=== PATIENT | female | born 1970 | race Caucasian/White ===

== ENCOUNTER 2019-06-08 04:58 | Emergency (ER) | payer OTHER, SELFPAY ==
[2019-06-08 04:58] VITALS: BP 114/75; PULSE 78; RESP 16; TEMP 36.1; O2SAT 98; BMI 38.7
--- NOTE | 2019-06-08 05:05 | ED.VIS.GI ---
History of Present Illness Chief Complaint: Flank Pain Informant: Patient - Abdominal Pain/Flank Pain Onset: Hours - about 7 Context: Sudden Onset Timing: Continuous, Waxes and wanes Quality: Aching Location: Right Flank - w/ radiation around to RLQ and into right groin Current Severity: Moderate Maximum Severity: Severe Worsened by: Nothing Relieved by: Nothing - Nausea/Vomiting/Emesis GI Symptom: Nausea. Negative for: Vomiting - Diarrhea/Melena/Hematochezia GI Symptom: Negative for: Diarrhea, Melena, Hematochezia Associated Symptoms: - - hesitancy. Negative for: Dysuria, Hematuria LMP: postmenopausal Narrative: Sudden onset colicky severe right flank pain with urinary hesitancy and urgency. No dysuria or hematuria. Nausea but no vomiting. No fevers. Prior similar symptoms: No Recent Illness/Hospitalization: No - Past Medical History (1) Dyslipidemia Status: Chronic (2) Hypertension Status: Chronic (3) Hypothyroidism Status: Chronic (4) Obesity Status: Chronic (5) Type 2 diabetes mellitus Status: Chronic Past Medical History - Allergies and Home Meds Allergies/Adverse Reactions: Allergies No Known Allergies Allergy (Unverified 06/08/19 05:03) Primary Care Physician: Candy Lira [Primary Care Provider] - Surgical History: - - x 3; no other abd surgeries Lives: With Family Smoking Status: Never smoker Review of Systems General: Denies: Chills, Fever, Sweats Eyes: Denies: Visual changes - bilaterally, Diplopia ENT: Denies: Rhinorrhea, Sore throat Cardiovascular: Denies: Chest pain, Palpitations Respiratory: Denies: Dyspnea, Cough, Dyspnea on exertion Gastrointestinal: Reports: Abdominal pain, Nausea. Denies: Vomiting, Diarrhea, Melena, Hematochezia Genitourinary: Reports: - - hesitancy, urgency. Denies: Dysuria, Hematuria, Frequency Musculoskeletal: Reports: Back pain - R low back. Denies: Neck pain, Extremity Pain Skin: Denies: Rash, Wounds Neurological: Denies: Headache, Weakness, Numbness Physical Exam Vital Signs/Narrative: Vital Signs Temp Pulse Resp BP Pulse Ox 06/08/19 04:58 96.9 F L 78 16 114/75 98 Inital Vital Signs reviewed: Yes General: Well nourished, Well developed, Obese, No Acute Distress Head: Normocephalic, Atraumatic Eyes: Perrl, EOMI ENT: Moist mucous membranes, No rhinorrhea Neck: Supple, Nontender Cardiovascular: Regular rate, Regular rhythm, No murmurs Respiratory: No distress, CTA bilaterally, Chest nontender Abdomen: Soft, Nondistended, Normal bowel sounds, Tender - mild lateral RUQ only; no RLQ tend. Negative for: Guarding, Rebound tenderness Back: Nontender, Normal Inspection, CVA tenderness - mild R only Extremities: Nontender, No edema Skin: Normal color, No rash, No Trauma Neurological: Alert, Oriented x3, Cranial nerves II-XII grossly intact, Normal Strength, Normal Sensation, Normal Gait Psychological: Normal affect, Normal Mood Diagnostic/Tx/Re-eval Impressions Abdomen/Pelvis CT 06/08/19 06:56 IMPRESSION: Mild right hydronephrosis and hydroureter with a small right UVJ calculus. Bilateral ovarian cysts, complex on the left side. Large umbilical hernia. Hepatomegaly, hepatic steatosis, morbid obesity, degenerative changes, distal splenic artery aneurysm and indeterminate calcification within the spleen felt to be nonacute findings. Electronically Signed: Cynthia Bhat MD at 7:39 EDT , Service support , 06/08/19 06:56 CT Abd [Abdomen/Pelvis without Cont] [CT] Stat Laboratory Results 06/08/19 06/08/19 06/08/19 05:05 05:05 06:10 WBC 10.5 RBC 5.06 Hgb 14.2 Hct 44.5 MCV 87.9 MCH 28.1 MCHC 31.9 L RDW Std Deviation 49.6 H RDW Coeff of David 15.7 H Plt Count 234 MPV 10.7 Immature Gran % (Auto) 0.200 Neut % (Auto) 82.4 H Lymph % (Auto) 14.3 L [place] % (Auto) 1.5 Eos % (Auto) 1.0 Baso % (Auto) 0.6 Absolute Neuts (auto) 8.7 H Absolute Lymphs (auto) 1.50 Nucleated RBC % 0 Sodium 139 Potassium 3.4 L Chloride 103 Carbon Dioxide 26.0 Anion Gap 10 BUN 26 H Creatinine 1.28 H Estim Creat Clear Calc 43.50 Est GFR (MDRD) Af Amer 57 L Est GFR (MDRD) Non-Af 47 L BUN/Creatinine Ratio 20.3 H Glucose 153 H Calcium 9.9 Urine Color Yellow Urine Clarity Sl. Cloudy Urine pH 6.0 Ur Specific Hornick 1.010 Urine Protein 15 H Urine Glucose (UA) 1000 H Urine Ketones 5 H Urine Occult Blood Negative Urine Nitrite Negative Urine Bilirubin Negative Urine Urobilinogen Normal Ur Leukocyte Esterase 25 H Urine RBC 0 SEEN Urine WBC 5-10 SEEN Ur Squamous Epith Cells 0-5 SEEN Urine Bacteria 0 SEEN Urine Mucus 0 SEEN - Medical Decision Making Initially obtain urinalysis and provided pain and nausea control. She is feeling much more comfortable after morphine and Zofran. Urinalysis shows glycosuria, trace leukocyte esterase and 3-5 white blood cells but no blood. Therefore after discussion with patient, she was agreeable to further work-up although I still think the most likely diagnosis for her symptoms is a kidney stone. Certainly AAA, pyelonephritis, and other causes right-sided abdominal pain are in the differential, so CT was obtained. Patient did confirm that she had no urinary symptoms prior to the acute onset of pain last night. CT confirms a very small right UVJ calculus along with mild right hydronephrosis and hydroureter, which certainly explains her symptoms, there is no other acute abnormalities although an umbilical hernia was noted, hepatomegaly, hepatic steatosis, and a distal splenic artery aneurysm. Follow-up advised, she was given information for urology in case she needs it, but she expectant management is indicated at this time along with analgesics and Zofran which were prescribed. We discussed reasons to return, she is comfortable with all of this. ED Disposition - Plan for ED Patient: Disposition: Home or Assisted Living Diagnosis: Ureteral colic, Ureterolithiasis Instructions: KIDNEY STONE w/ Colic Prescriptions: Oxycodone HCl/Acetaminophen [Percocet 5/325] 1 tab PO Q6H PRN PRN 3 Days #12 tab PRN Reason: Pain Prescription Printed Ondansetron [Zofran] 8 mg PO Q8H PRN PRN #12 tab PRN Reason: Nausea Prescription Printed Referrals: [facility] Briseyda,Candy Alfredo [Primary Care Provider] - (Follow-up routinely for incidental findings seen on your CT scan: Umbilical hernia, fatty liver, splenic artery aneurysm. Most of the time, these findings need simply followed and are not acutely dangerous.) Ally Casey MD [STAFF PHYSICIAN] - 1 Week if not improving
[2019-06-08] MEDS: Morphine 4 MG/ML Syringe IV (05:18)
[2019-06-08] MEDS: Ondansetron 4 MG/2 ML Vial IV (05:19)
[2019-06-08 06:16] LABS: Bacteria 0 SEEN /hpf (None Seen); Mucous, Urine 0 SEEN /hpf (<or=2+); Red Blood Cells-Urine 0 SEEN /hpf (0-5)
[2019-06-08 06:17] LABS: Color, Urine Yellow (Yellow); Glucose, Dipstick 1000 mg/dl (Normal); Ketone-Dipstick 5 mg/dl (Negative); Leukocyte Esterase-Dipstick 25 /ul (Negative); Nitrite-Dipstick Negative (Negative); Occult Blood-Urine Negative /ul (Negative); Protein-Dipstick 15 mg/dl (Negative); Urine Bilirubin Dipstick Negative (Negative); Urine Clarity Sl. Cloudy (Clear); Urine Urobilinogen Normal (Normal)
[2019-06-08 06:35] LABS: Squamous Epithelial Cells - UA 0-5 SEEN /hpf (5-10); White Blood Cells 5-10 SEEN /hpf (0-5)
--- NOTE | 2019-06-08 06:56 | CT_ITS ---
STUDY: CT ABDOMEN AND PELVIS WITHOUT CONTRAST REASON FOR EXAM: Female, 48 years old. Right flank pain RADIATION DOSAGE (If Supplied By Facility): CTDIvol = ( 22.26 ) mGy, DLP = ( 1000.93 ) mGycm TECHNIQUE: Transaxial images were obtained from the dome of the diaphragm to the symphysis pubis without oral contrast, and without intravenous contrast. Sagittal and coronal images were reconstructed. Individualized dose optimization techniques were used for this CT. COMPARISON: None. FINDINGS: The visualized lung bases are unremarkable. The visualized portions of the heart are within normal limits. There is decreased attenuation of the enlarged liver consistent with steatosis. Normal gallbladder and extrahepatic biliary system. Normal spleen. Calcified distal splenic artery aneurysm . 2 round small intraparenchymal calcification within the spleen are indeterminate. Normal pancreas. Normal bilateral adrenal glands. Mild right hydronephrosis and hydroureter with perirenal and ureteral stranding and a small UVJ calculus of 0.3 cm. Normal left kidney. Normal visualized stomach. Normal small intestine. Normal colon. The appendix is visualized and appears normal. Normal abdominal aorta. Normal inferior vena cava. Normal retroperitoneum. Displacement to the right of the urinary bladder by the midline uterus. Left ovarian cyst with incomplete peripheral calcification measuring 2.5 x 3 x 2.8 cm. Right ovarian cyst 1.8 x 2.1 x 2.6 cm with an adjacent subcentimeter cysts.. There is a slightly tethered to the anterior abdominal wall. Fat-containing umbilical hernia with adjacent subcutaneous fat stranding, opening 2 cm in width, hernia sac measuring 5.1 x 6.3 x 6.3 cm ( AP x width x height ). Morbid obesity. Anterior abdominal wall subcutaneous and fat stranding possible injection related. There are diffuse degenerative changes of the visualized lumbar spine. CT/Abdomen/Pelvis without Cont IMPRESSION: Mild right hydronephrosis and hydroureter with a small right UVJ calculus. Bilateral ovarian cysts, complex on the left side. Large umbilical hernia. Hepatomegaly, hepatic steatosis, morbid obesity, degenerative changes, distal splenic artery aneurysm and indeterminate calcification within the spleen felt to be nonacute findings. Electronically Signed: Cynthia Bhat MD at 7:39 EDT , Service support ,
[2019-06-08 07:07] LABS: Absolute Neutrophil Count 8.7 X10^3/uL (2.0-7.7); Basophil# 0.06 X10^3/uL; Basophil% 0.6 % (0-1); Eosinophil# 0.11 X10^3/uL; Hematocrit 44.5 % (37-47); Hemoglobin 14.2 g/dL (12.0-15.0); Lymphocyte % 14.3 % (19-41); Mean Corp Hgb Conc 31.9 g/dL (32-36); Mean Corpuscular Hgb 28.1 pg (27.0-32.0); Mean Corpuscular Volume 87.9 fL (81-99); Mean Platelet Vol. 10.7 fl (6.2-12.0); Monocyte# 0.16 X10^3/uL; Monocyte% 1.5 % (0-10); NRBC Flagged by Analyzer 0 % (0-5); Neutrophil # 8.67 X10^3/uL (2.7-7.7); Neutrophil % 82.4 % (47-70); Platelet Count 234 K/mm3 (150-450); RBC Distribution Width CV 15.7 % (11.6-14.6); RBC Distribution Width SD 49.6 fl (35.1-43.9); Red Blood Count 5.06 M/mm3 (4.2-5.4); White Blood Count 10.5 K/mm3 (4.4-11.0)
[2019-06-08 07:13] LABS: Anion Gap 10 (5-15); BUN 26 mg/dL (7-18); BUN/Creat Ratio 20.3 RATIO (10-20); Calcium,Total 9.9 mg/dL (8.5-10.1); Chloride 103 mmol/L (98-107); Creatinine, Serum 1.28 mg/dL (0.55-1.02); EST Glomerular Filtration Rate 47 mL/min (>60); Est Glom Filt Rate - Afr Amer 57 mL/min (>60); Glucose 153 mg/dL (74-106); Potassium 3.4 mmol/L (3.5-5.1); Sodium Level 139 mmol/L (136-145)
[2019-06-08] MEDS: oxyCODONE 5 MG Tablet PO (08:02)
[2019-06-08 08:03] VITALS: BP 124/63; PULSE 59; RESP 16; O2SAT 98
== END 2019-06-08 08:03 | disposition home or self-care (01) ==
PROVIDERS: Emergency Provider Emergency Medicine; Referring Provider Nurse Practitioner Family
DX: N13.2 Hydronephrosis with renal and ureteral calculous obstruction (principal); E66.01 Morbid (severe) obesity due to excess calories; N83.201 Unspecified ovarian cyst, right side; N83.202 Unspecified ovarian cyst, left side; K42.9 Umbilical hernia without obstruction or gangrene; K76.0 Fatty (change of) liver, not elsewhere classified; I72.8 Aneurysm of other specified arteries; E03.9 Hypothyroidism, unspecified; E11.9 Type 2 diabetes mellitus without complications; I10 Essential (primary) hypertension; E78.5 Hyperlipidemia, unspecified; Z79.4 Long term (current) use of insulin; Z79.84 Long term (current) use of oral hypoglycemic drugs; Z79.899 Other long term (current) drug therapy
CPT/HCPCS: 74176; 80048; 81001; 85025; 87086; 87088; 96374; 96375; 99284; A4216; J2405

== ENCOUNTER 2019-06-10 15:20 | Emergency (ER) | payer OTHER, SELFPAY ==
[2019-06-10] VITALS (11 sets, daily range): BP systolic 92–135; BP diastolic 56–69; PULSE 89–118; RESP 18–30; TEMP 37.3–37.8; O2SAT 81–98; BMI 40.1
--- NOTE | 2019-06-10 15:30 | RAD_ITS ---
STUDY: X-RAY CHEST REASON FOR EXAM: Female, 48 years old. Hypoxia TECHNIQUE: Single frontal view of the chest. COMPARISON: None. FINDINGS: Mild elevation of the right hemidiaphragm. Right basilar alveolar disease and atelectasis. There is no demonstrated pleural abnormality. Normal size heart. Normal mediastinum and kamran. Normal visualized pulmonary arteries. Normal visualized aortic arch and descending thoracic aorta. Normal visualized thoracic spine. Normal visualized ribs, clavicles, and shoulders. There is no demonstrated abnormality of the visualized soft tissue structures of the upper abdomen. RAD/Chest 1 View (Portable) IMPRESSION: Mild elevation of the right hemidiaphragm. Right basilar alveolar disease and atelectasis. Electronically Signed: Greg Cárdenas MD at 16:16 EST Tel , Service support ,
--- NOTE | 2019-06-10 15:30 | EKG12_ITS ---
Test Reason : CONFUSION Blood Pressure : / mmHG Vent. Rate : 114 BPM Atrial Rate : 114 BPM P-R Int : 138 ms QRS Dur : 084 ms QT Int : 294 ms P-R-T Axes : 035 065 015 degrees QTc Int : 405 ms Sinus tachycardia Possible Inferior infarct , age undetermined Cannot rule out Anterior infarct , age undetermined Abnormal ECG Confirmed by NEO LEONARD, SKYE ([id number]), editorial clerk VALDEZ BROWN ([id number]) on 06/13/2019 10:57:25 AM Referred By: NAREN Confirmed By:SKYE LARSON MD
--- NOTE | 2019-06-10 15:34 | ED.DCSUM_ITS ---
History of Present Illness Informant: Patient, Family, Office Rental Clerk Onset: Today Context: Gradual Onset Timing: Continuous Quality: lightheaded Location: head Current Severity: Severe Maximum Severity: Severe Worsened by: nothing Relieved by: nothing Associated Symptoms: Fever and chills Narrative: 48-year-old female with a history of hypertension, hyperlipidemia and type 2 diabetes mellitus presents to the emergency department by [facility] with confusion. Patient seen here 2 days ago. She was diagnosed with a kidney stone. She is been running a fever since this morning and per her she has seemed out of it and not like herself. Patient did not have any difficulty with speech or ambulation. She has not had numbness tingling or weakness or visual changes. No falls. She is not having any abdominal or flank pain. She did urinate this morning. She has no headache or neck pain. Squad states the patient was 80% pulse ox on room air. Per patient and she was not having difficulty breathing there was no evidence per them of respiratory distress and patient breathing comfortably on my evaluation Prior similar symptoms: Yes Recent Illness/Hospitalization: Yes <Zion Harper - Last Filed: 06/10/19 18:19> <Dillan Chambers - Last Filed: 06/10/19 23:43> Chief Complaint: Confusion Past Medical History Prior records reviewed: Yes Past Medical History: - - Hypertension, hyperlipidemia, diabetes mellitus Surgical History: - - x 3; no other abd surgeries Lives: With Family Smoking Status: Never smoker <Zion Harper - Last Filed: 06/10/19 18:19> <Dillan Chambers - Last Filed: 06/10/19 23:43> - Allergies and Home Meds Allergies/Adverse Reactions: Allergies No Known Allergies Allergy (Verified 06/10/19 15:20) Primary Care Physician: Candy Lira [Primary Care Provider] - Review of Systems All systems negative except as indicated General: Reports: Chills, Fever, Malaise Cardiovascular: Denies: Chest pain, Palpitations, Heart racing, -, - Respiratory: Denies: Dyspnea, Cough, Sputum, Dyspnea on exertion, Orthopnea, Paroxysmal nocturnal dyspnea, -, - Genitourinary: Reports: Dysuria Musculoskeletal: Denies: Myalgias, Arthralgias, Neck pain, Back pain, Swelling, Extremity Pain, -, - Skin: Denies: Rash, Abscess, Abrasions, Wounds, -, - Neurological: Denies: Headache, Weakness, Parasthesia, Numbness, -, - <Zion Harper - Last Filed: 06/10/19 18:19> Physical Exam Vital Signs/Narrative: Vital Signs Temp Pulse Resp BP Pulse Ox 06/10/19 15:26 29 H 95 06/10/19 15:23 99.6 F H 118 H 26 H 135/63 H 81 Inital Vital Signs reviewed: Yes General: Well nourished, Well developed, Obese, No Acute Distress Head: Normocephalic, Atraumatic Eyes: Perrl, EOMI ENT: Moist mucous membranes Neck: Supple, Nontender Cardiovascular: Regular rhythm, Tachycardia Respiratory: No distress, CTA bilaterally, Chest nontender Abdomen: Soft, Nontender, Nondistended, Normal bowel sounds, No masses Back: Nontender, Normal Inspection. Negative for: CVA tenderness Extremities: Nontender, No edema Skin: Normal color, No rash Neurological: Alert, Cranial nerves II-XII grossly intact, Normal Strength, Normal Sensation, Confused, Disoriented. Negative for: Parasthesia, Weakness, Left side facial droop, Right side facial droop <Zion Harper - Last Filed: 06/10/19 18:19> Vital Signs/Narrative: Vital Signs Temp Pulse Resp BP Pulse Ox 06/10/19 20:37 99.4 F H 89 22 H 93/57 L 97 06/10/19 20:00 99.4 F H 89 22 H 93/57 L 97 <Dillan Chambers - Last Filed: 06/10/19 23:43> Diagnostic/Tx/Re-eval Chest X-Ray - ED: 1 View, Read by ED Physician, Read by Radiologist, Right Infiltrate - Rhythm Strip Rhythm Strip: Sinus Tach Rate: 111 Ectopy: None - EKG Initial EKG Interpretation: No Acute Injury Pattern, Sinus Tachycardia Prior: Unchanged - Medical Decision Making On arrival patient is tachycardic with a fever. We did an EKG that showed sinus tachycardia but no signs of ischemia. Patient's work-up shows CBC with elevated white blood cell count of 12.6. Her creatinine is up to 2.1 with a BUN of 46 elevated from her visit here 2 days ago. Blood glucose 386. Urinalysis shows no infection. Chest x-ray shows a right lower lobe pneumonia. Patient is not having any abdominal pain. We did not repeat image her abdomen with known stone and no sign of infection in the urine. She is still requiring oxygen with 3 L nasal cannula but is 98%. She is in no distress. Lactate 2.6. She is given the appropriate IV fluid bolus. Rocephin and Zithromax for patient will require admission for sepsis that is likely from a pneumonia but she also has a right- sided ureteral stone. I spoke with the hospitalist Dr Jefferson. At this time Tuesday evening there is no urology call available and because of this he requested the patient be transferred. Patient and her requested transfer to [facility]. I spoke with Dr. Berkowitz urologist as well as the hospitalist Dr. Hamilton. To accept patient in transfer. Patient hemodynamically stable at this time family is agreeable with plan and she will be transferred. - Critical Care Time Critical care time (excluding procedures): 30-74 minutes, Discussing w/Consulta nts, Arranging Admission or Transfer, Performing Direct Patient Care at Bedside <Zion Harper - Last Filed: 06/10/19 18:19> - Medical Decision Making Patient was seen with me. I did a [id number] examination with the patient. Patient presents with confusion that began today. Patient was seen recently and diagnosed with a kidney stone. Review of the CT shows that this was a 3 mm stone on the right. Patient denies any dysuria or hematuria. Family reports that the patient is confused today. Patient knows that she is at [facility] but does not know what year, month, or day it is. Oral mucosa is pink and moist. Neck is supple. Trachea is midline. There is no JVD. Heart was regular rate and rhythm. Lungs are clear and equal bilaterally. Abdomen is soft. Bowel sounds are normal. There is some mild right-sided tenderness. There is no rebound or guarding noted. Cranial nerves II through XII grossly intact. There are no focal motor or sensory deficits. CBC shows a leukocytosis of 12.6. Creatinine is increased to 2.1. BUN was elevated at 46. These were both increased from previous results. Urinalysis does not show any evidence of urinary tract infection. Chest x-ray shows a right lower lobe pneumonia. Lactate was elevated at 2.6. Patient was given IV fluids. Patient was started on Rocephin and Zithromax. Case was discussed with the hospitalist here. Since the patient has a 3 mm ureteral calculus and there is no urology coverage today and he is unsure if there is urology coverage tomorrow, he felt that the patient will be best served being transferred to a different facility. Family requested to be transferred to [facility]. Case was discussed with the hospitalist and urologist there. Patient will be transferred to [facility]. Patient and family understood and were agreeable with the plan. All questions were answered. <Dillan Chambers - Last Filed: 06/10/19 23:43> ED Disposition <Zion Harper - Last Filed: 06/10/19 18:19> <Dillan Chambers - Last Filed: 06/10/19 23:43> - Plan for ED Patient: Disposition: [facility] Diagnosis: Sepsis, Ureteral stone, MILKA (acute kidney injury), CAP (community acquired pneumonia), Hypoxia Referrals: Candy Lira [Primary Care Provider] -
[2019-06-10 15:46] LABS: Mucous, Urine 0 SEEN /hpf (<or=2+); Squamous Epithelial Cells - UA 0 SEEN /hpf (5-10); White Blood Cells 0 SEEN /hpf (0-5)
[2019-06-10 15:49] LABS: Hematocrit 42.5 % (37-47); Hemoglobin 13.3 g/dL (12.0-15.0); Mean Corp Hgb Conc 31.3 g/dL (32-36); Mean Corpuscular Hgb 27.9 pg (27.0-32.0); Mean Corpuscular Volume 89.1 fL (81-99); Mean Platelet Vol. 11.5 fl (6.2-12.0); POSITIVE COUNT YES; POSITIVE DIFFERENTIAL YES; POSITIVE MORPHOLOGY YES; Platelet Count 73 K/mm3 (150-450); RBC Distribution Width CV 15.8 % (11.6-14.6); RBC Distribution Width SD 51.6 fl (35.1-43.9); Red Blood Count 4.77 M/mm3 (4.2-5.4); White Blood Count 12.6 K/mm3 (4.4-11.0)
[2019-06-10 15:50] LABS: Color, Urine Yellow (Yellow); Glucose, Dipstick 1000 mg/dl (Normal); Ketone-Dipstick 50 mg/dl (Negative); Leukocyte Esterase-Dipstick Negative /ul (Negative); Nitrite-Dipstick Negative (Negative); Occult Blood-Urine 150 /ul (Negative); Protein-Dipstick 30 mg/dl (Negative); Urine Bilirubin Dipstick Negative (Negative); Urine Clarity Sl. Cloudy (Clear); Urine Urobilinogen Normal (Normal)
[2019-06-10 15:53] LABS: International Normalized Ratio 1.2; Prothrombin Time (Protime)PT. 15.4 SECONDS (11.7-14.9)
[2019-06-10 15:54] LABS: Partial Thromboplast Time 33.4 Seconds (24.1-36.2)
[2019-06-10 15:56] LABS: Bacteria 1+ /hpf (None Seen); Red Blood Cells-Urine 0-5 SEEN /hpf (0-5)
[2019-06-10] MEDS: Acetaminophen 500 MG Tablet 1000 MG PO (15:57)
[2019-06-10] MEDS: 0.9% Normal Saline 1,000 ML 999 ML IV ×2 (16:03→16:36)
[2019-06-10 16:05] LABS: ALB/GLOB Ratio 0.5 RATIO (0.9-2.4); AST(SGOT) 44 U/L (15-37); Alanine Aminotransfer ALT/SGPT 39 U/L (13-56); Albumin, Serum 2.4 g/dL (3.2-5.0); Alkaline Phosphatase 140 U/L (45-117); Anion Gap 13 (5-15); BUN 41 mg/dL (7-18); Calcium,Total 9.7 mg/dL (8.5-10.1); Chloride 95 mmol/L (98-107); Creatinine, Serum 2.16 mg/dL (0.55-1.02); EST Glomerular Filtration Rate 26 mL/min (>60); Est Glom Filt Rate - Afr Amer 31 mL/min (>60); Estimated Creatinine Clearance 25.78 ml/min; Globulin 4.8 g/dL (2.2-4.2); Glucose 358 mg/dL (74-106); Potassium 3.8 mmol/L (3.5-5.1); Protein, Total 7.2 g/dL (6.4-8.2); Sodium Level 131 mmol/L (136-145)
[2019-06-10 16:20] LABS: Lactic Acid 2.6 mmol/L (0.4-2.0)
[2019-06-10 16:46] LABS: Differential Indicated MANUAL DIFF
[2019-06-10 16:59] LABS: Absolute Lymphocyte Count 1.13 X10^3/uL (0.83-4.51); Absolute Neutrophil Count 11.1 X10^3/uL (2.0-7.7); Lymphocyte # 1.13 X10^3/ul (4.0); Neutrophil # 11.09 X10^3/uL (2.7-7.7)
[2019-06-10 17:00] LABS: Total Cells Counted 100 (MANUAL DIFF)
[2019-06-10 17:09] LABS: Burr Cells RARE; Differential Comment SCANNED; Dohle Bodies RARE; Platelet Estimate MOD DEC (ADEQ)
[2019-06-10] MEDS: Ceftriaxone 1 GM/50 ML BAG IV (17:43)
[2019-06-10] MEDS: Ondansetron 4 MG/2 ML Vial IV (18:58)
[2019-06-10] MEDS: Morphine 4 MG/ML Syringe IV (18:59)
--- NOTE | 2019-06-10 19:10 | ED.RN ---
[facility] CALLED, THEY WILL BE DELAYED BY ONE HOUR FROM [facility] ETA. RN ADVISED
[2019-06-10 19:39] LABS: Reflex Lactate? Y
[2019-06-10] MEDS: 0.9% Normal Saline 1,000 ML 1000 ML IV (20:18)
[2019-06-10] MEDS: fentaNYL 100 MCG/2 ML Ampul 50 MCG IV (20:19)
[2019-06-10 21:01] LABS: Lactic Acid 1.6 mmol/L (0.4-2.0)
--- NOTE | 2019-06-11 02:51 | ED.RN ---
DORIS [facility] AT [facility] MADE AWARE BLOOD CULTURES CAME BACK GRAM NEGATIVE RODS AND PT DID RECEIVE ZITHROMAX AND ROCEPHIN THAT IS A TREATMENT FOR GRAM NEG INFECTIONS
[2019-06-11 15:23] LABS: Metamyelocyte 2 % (0-1); Neutrophil-Band 10 % (0-5); Neutrophil-Segmented 78 % (47-70)
[2019-06-11 15:24] LABS: Eosinophil 0 % (0-5); Lymphocyte 9 % (19-41); Monocyte 1 % (0-10)
[2019-06-13 13:24] LABS: Pathologist Review Reviewed
== END 2019-06-10 20:35 | disposition short-term general hospital (02) ==
PROVIDERS: Emergency Provider Physician Assistant Medical
DX: A41.9 Sepsis, unspecified organism (principal); N20.1 Calculus of ureter; N17.9 Acute kidney failure, unspecified; J18.9 Pneumonia, unspecified organism; R09.02 Hypoxemia; E66.9 Obesity, unspecified; E11.9 Type 2 diabetes mellitus without complications; E78.5 Hyperlipidemia, unspecified; I10 Essential (primary) hypertension; Z79.4 Long term (current) use of insulin; Z79.84 Long term (current) use of oral hypoglycemic drugs; Z79.899 Other long term (current) drug therapy
CPT/HCPCS: 36415; 51702; 71045; 80053; 81001; 83605; 85025; 85610; 85730; 87040; 87077; 87086; 87088; 87186; 93005; 96361; 96365; 96367; 96375; 99285; J7030; J7040; A4216; J2405

== ENCOUNTER → 2019-06-21 12:35 | Outpatient (CLI) | payer OTHER, SELFPAY ==
[2019-06-10 15:23] VITALS: BMI 40.1
[2019-06-21 13:14] LABS: ALB/GLOB Ratio 0.4 RATIO (0.9-2.4); AST(SGOT) 12 U/L (15-37); Alanine Aminotransfer ALT/SGPT 20 U/L (13-56); Albumin, Serum 2.1 g/dL (3.2-5.0); Alkaline Phosphatase 72 U/L (45-117); Anion Gap 7 (5-15); BUN 25 mg/dL (7-18); BUN/Creat Ratio 19.4 RATIO (10-20); Chloride 96 mmol/L (98-107); Creatinine, Serum 1.29 mg/dL (0.55-1.02); EST Glomerular Filtration Rate 46 mL/min (>60); Est Glom Filt Rate - Afr Amer 56 mL/min (>60); Glucose 188 mg/dL (74-106); Potassium 4.4 mmol/L (3.5-5.1); Protein, Total 7.1 g/dL (6.4-8.2); Sodium Level 136 mmol/L (136-145)
[2019-06-21 13:16] LABS: Erythrocyte Sedimentation Rate 107 mm/hr (0-30)
[2019-06-21 13:18] LABS: Hematocrit 35.7 % (37-47); Hemoglobin 10.8 g/dL (12.0-15.0); Mean Corp Hgb Conc 30.3 g/dL (32-36); Mean Corpuscular Hgb 27.3 pg (27.0-32.0); Mean Corpuscular Volume 90.2 fL (81-99); Mean Platelet Vol. 9.9 fl (6.2-12.0); Platelet Count 419 K/mm3 (150-450); RBC Distribution Width CV 15.3 % (11.6-14.6); RBC Distribution Width SD 50.3 fl (35.1-43.9); Red Blood Count 3.96 M/mm3 (4.2-5.4); White Blood Count 9.7 K/mm3 (4.4-11.0)
== END ==
DX: Z79.899 Other long term (current) drug therapy (principal)
CPT/HCPCS: 80053; 85027; 85652; 86140

== ENCOUNTER 2019-06-28 13:09 | Emergency (ER) | payer OTHER, SELFPAY ==
[2019-06-10 15:23] VITALS: BMI 40.1
[2019-06-28 13:10] VITALS: BP 99/54; PULSE 83; RESP 16; TEMP 36.4; O2SAT 96; BMI 41.0
--- NOTE | 2019-06-28 14:18 | ED.DCSUM_ITS ---
- ER Visit Summary Date of Service: 06/28/19 Chief Complaint: Bleeding from left arm PICC line site History of Present Illness: The patient is a 48 F 3 of diabetes, A. fib on Eliquis, kidney stones and low thyroid disease. Patient was recently hospitalized for an infection and currently has a PICC line that has been for 10 days and is being treated with IV antibiotics secondary to sepsis. States she has been doing well. She is on Eliquis secondary to A. fib and has bruising today at the PICC line site. Denies any pain. Home health nurse 100 evaluated. She denies any complaints. Physical Examination: Well-appearing middle-aged female no acute distress. Vital signs are stable. She does not look septic or toxic. HEENT exam unremarkable moist with membranes. Neck nontender. Lungs clear to auscultation bilaterally. Heart regular rhythm no murmur. Currently she is in normal sinus rhythm and is not in A. fib. Abdomen obese but soft and nontender. She is moving all 4 extremities. The left arm antecubital area is a PICC line site. There is a small amount of blood there it does not appear to be actively bleeding. There is no hematoma. And is no large amount of blood. Distally the left forearm is nontender nonswollen. The left hand is neurovascularly intact. And her radial pulses intact. Test Results: None Emergency Department Course and Treatment: ER nurse will change the PICC line dressing and will assess any acute bleeding. Treatment Plan: PICC line home care. Continue current meds. Disposition: Discharge Impression: Minor bleeding from left arm PICC line site This note was generated with [employer] dictation software. It may contain incorrect words, spelling, and punctuation that were not noted in review of the chart prior to signing ED Disposition - Plan for ED Patient: Referrals: Candy Lira [Primary Care Provider] -
--- NOTE | 2019-06-28 15:07 | ED.DEP ---
ED Disposition - Plan for ED Patient: Disposition: Home or Assisted Living Referrals: Raquel Rain,Candy Alfredo [Primary Care Provider] - As Needed Additional Instructions: Line site looks good. If it rebleeds hold direct pressure and ice to the area. If unable to get it stopped and bleeding significantly return.
[2019-06-28 15:09] VITALS: BP 110/70; PULSE 80; RESP 14; O2SAT 98
== END 2019-06-28 15:16 | disposition home or self-care (01) ==
PROVIDERS: Emergency Provider Emergency Medicine
DX: T85.838A Hemorrhage due to other internal prosthetic devices, implants and grafts, initial encounter (principal); E11.9 Type 2 diabetes mellitus without complications; I48.91 Unspecified atrial fibrillation; E03.9 Hypothyroidism, unspecified; Z86.19 Personal history of other infectious and parasitic diseases; Z87.442 Personal history of urinary calculi; Z79.01 Long term (current) use of anticoagulants; Z79.4 Long term (current) use of insulin; Z79.84 Long term (current) use of oral hypoglycemic drugs; Z79.899 Other long term (current) drug therapy
CPT/HCPCS: 99282

== ENCOUNTER → 2019-07-02 13:04 | Outpatient (CLI) | payer OTHER, SELFPAY ==
[2019-06-28 13:10] VITALS: BMI 41.0
[2019-07-02 13:24] LABS: Erythrocyte Sedimentation Rate 97 mm/hr (0-30)
[2019-07-02 13:25] LABS: Hematocrit 32.9 % (37-47); Hemoglobin 10.2 g/dL (12.0-15.0); Mean Corpuscular Hgb 27.4 pg (27.0-32.0); Mean Corpuscular Volume 88.4 fL (81-99); Mean Platelet Vol. 9.9 fl (6.2-12.0); Platelet Count 216 K/mm3 (150-450); RBC Distribution Width CV 15.5 % (11.6-14.6); RBC Distribution Width SD 49.2 fl (35.1-43.9); Red Blood Count 3.72 M/mm3 (4.2-5.4); White Blood Count 6.2 K/mm3 (4.4-11.0)
[2019-07-02 13:34] LABS: ALB/GLOB Ratio 0.7 RATIO (0.9-2.4); AST(SGOT) 23 U/L (15-37); Alanine Aminotransfer ALT/SGPT 27 U/L (13-56); Albumin, Serum 2.7 g/dL (3.2-5.0); Alkaline Phosphatase 67 U/L (45-117); Anion Gap 7 (5-15); BUN 21 mg/dL (7-18); BUN/Creat Ratio 14.9 RATIO (10-20); Calcium,Total 8.5 mg/dL (8.5-10.1); Chloride 99 mmol/L (98-107); Creatinine, Serum 1.41 mg/dL (0.55-1.02); EST Glomerular Filtration Rate 42 mL/min (>60); Est Glom Filt Rate - Afr Amer 51 mL/min (>60); Glucose 162 mg/dL (74-106); Potassium 4.3 mmol/L (3.5-5.1); Protein, Total 6.7 g/dL (6.4-8.2); Sodium Level 137 mmol/L (136-145)
== END ==
DX: N20.0 Calculus of kidney (principal)
CPT/HCPCS: 80053; 85027; 85652; 86140

== ENCOUNTER → 2019-07-09 12:22 | Outpatient (CLI) | payer OTHER, SELFPAY ==
[2019-06-28 13:10] VITALS: BMI 41.0
[2019-07-09 13:09] LABS: Hematocrit 31.1 % (37-47); Hemoglobin 9.6 g/dL (12.0-15.0); Mean Corp Hgb Conc 30.9 g/dL (32-36); Mean Corpuscular Hgb 27.5 pg (27.0-32.0); Mean Corpuscular Volume 89.1 fL (81-99); Mean Platelet Vol. 9.9 fl (6.2-12.0); Platelet Count 250 K/mm3 (150-450); RBC Distribution Width CV 15.6 % (11.6-14.6); RBC Distribution Width SD 49.9 fl (35.1-43.9); Red Blood Count 3.49 M/mm3 (4.2-5.4); White Blood Count 5.8 K/mm3 (4.4-11.0)
[2019-07-09 13:13] LABS: Erythrocyte Sedimentation Rate 67 mm/hr (0-30)
[2019-07-09 13:27] LABS: ALB/GLOB Ratio 0.7 RATIO (0.9-2.4); AST(SGOT) 25 U/L (15-37); Alanine Aminotransfer ALT/SGPT 28 U/L (13-56); Albumin, Serum 2.6 g/dL (3.2-5.0); Alkaline Phosphatase 67 U/L (45-117); Anion Gap 8 (5-15); BUN 27 mg/dL (7-18); BUN/Creat Ratio 19.7 RATIO (10-20); Calcium,Total 8.9 mg/dL (8.5-10.1); Chloride 100 mmol/L (98-107); Creatinine, Serum 1.37 mg/dL (0.55-1.02); EST Glomerular Filtration Rate 43 mL/min (>60); Est Glom Filt Rate - Afr Amer 52 mL/min (>60); Globulin 3.9 g/dL (2.2-4.2); Glucose 181 mg/dL (74-106); Potassium 4.6 mmol/L (3.5-5.1); Protein, Total 6.5 g/dL (6.4-8.2); Sodium Level 137 mmol/L (136-145)
== END ==
DX: N20.0 Calculus of kidney (principal)
CPT/HCPCS: 80053; 85027; 85652; 86140

== ENCOUNTER → 2020-02-26 09:16 | Outpatient (CLI) | payer SELFPAY ==
[2020-02-06 08:45] VITALS: BMI 44.7
[2020-02-26 09:57] LABS: Absolute Lymphocyte Count 3.68 X10^3/uL (0.83-4.51); Absolute Neutrophil Count 4.8 X10^3/uL (2.0-7.7); Basophil# 0.06 X10^3/uL; Basophil% 0.6 % (0-1); Eosinophil# 1.56 X10^3/uL; Eosinophils% 14.7 % (0-5); Hemoglobin 11.7 g/dL (12.0-15.0); Lymphocyte # 3.68 X10^3/ul (4.0); Lymphocyte % 34.8 % (19-41); Mean Corp Hgb Conc 30.8 g/dL (32-36); Mean Corpuscular Volume 87.8 fL (81-99); Mean Platelet Vol. 10.1 fl (6.2-12.0); Monocyte# 0.43 X10^3/uL; Monocyte% 4.1 % (0-10); NRBC Flagged by Analyzer 0 % (0-5); Neutrophil # 4.79 X10^3/uL (2.7-7.7); Neutrophil % 45.2 % (47-70); Platelet Count 242 K/mm3 (150-450); RBC Distribution Width CV 18.2 % (11.6-14.6); Red Blood Count 4.33 M/mm3 (4.2-5.4); White Blood Count 10.6 K/mm3 (4.4-11.0)
[2020-02-26 10:47] LABS: ALB/GLOB Ratio 0.9 RATIO (0.9-2.4); AST(SGOT) 19 U/L (15-37); Alanine Aminotransfer ALT/SGPT 32 U/L (13-56); Albumin, Serum 3.2 g/dL (3.2-5.0); Alkaline Phosphatase 45 U/L (45-117); Anion Gap 3 (5-15); BUN 22 mg/dL (7-18); Calcium,Total 8.6 mg/dL (8.5-10.1); Chloride 106 mmol/L (98-107); Creatinine, Serum 1.16 mg/dL (0.55-1.02); EST Glomerular Filtration Rate 52 mL/min (>60); Est Glom Filt Rate - Afr Amer 63 mL/min (>60); Globulin 3.6 g/dL (2.2-4.2); Glucose 201 mg/dL (74-106); Protein, Total 6.8 g/dL (6.4-8.2); Sodium Level 138 mmol/L (136-145); Thyroid Stim Hormone (TSH) 0.29 uIU/mL (0.358-3.74)
[2020-02-26 10:50] LABS: Hemoglobin A1c 9.3 % (3.8-5.6)
== END ==
PROVIDERS: Referring Provider Nurse Practitioner Family; Visit Provider Nurse Practitioner Family
DX: E11.22 Type 2 diabetes mellitus with diabetic chronic kidney disease (principal); N18.3 Chronic kidney disease, stage 3 (moderate); E03.9 Hypothyroidism, unspecified; E11.65 Type 2 diabetes mellitus with hyperglycemia; I50.9 Heart failure, unspecified
CPT/HCPCS: 36415; 80053; 83036; 84443; 85025

== ENCOUNTER → 2020-04-22 08:45 | Outpatient (CLI) | payer OTHER, SELFPAY ==
[2020-02-06 08:45] VITALS: BMI 44.7
[2020-04-22 10:37] LABS: Free T3 2.4 pg/mL (2.18-3.98); T4 Free Direct 1.06 ng/dL (0.76-1.46); Thyroid Stim Hormone (TSH) 6.42 uIU/mL (0.358-3.74)
== END ==
DX: E03.9 Hypothyroidism, unspecified (principal)
CPT/HCPCS: 36415; 84439; 84443; 84481

== ENCOUNTER → 2020-06-13 09:02 | Outpatient (CLI) | payer OTHER, SELFPAY ==
[2020-02-06 08:45] VITALS: BMI 44.7
[2020-06-13 09:32] LABS: Absolute Lymphocyte Count 3.06 X10^3/uL (0.83-4.51); Absolute Neutrophil Count 5.5 X10^3/uL (2.0-7.7); Basophil# 0.04 X10^3/uL; Basophil% 0.4 % (0-1); Eosinophil# 0.28 X10^3/uL; Hematocrit 39.4 % (37-47); Hemoglobin 11.8 g/dL (12.0-15.0); Lymphocyte # 3.06 X10^3/ul (4.0); Lymphocyte % 32.8 % (19-41); Mean Corp Hgb Conc 29.9 g/dL (32-36); Mean Corpuscular Hgb 26.7 pg (27.0-32.0); Mean Corpuscular Volume 89.1 fL (81-99); Mean Platelet Vol. 10.1 fl (6.2-12.0); Monocyte# 0.47 X10^3/uL; NRBC Flagged by Analyzer 0 % (0-5); Neutrophil # 5.46 X10^3/uL (2.7-7.7); Neutrophil % 58.6 % (47-70); Platelet Count 263 K/mm3 (150-450); RBC Distribution Width CV 15.9 % (11.6-14.6); RBC Distribution Width SD 51.8 fl (35.1-43.9); Red Blood Count 4.42 M/mm3 (4.2-5.4); White Blood Count 9.3 K/mm3 (4.4-11.0)
[2020-06-13 10:12] LABS: ALB/GLOB Ratio 0.8 RATIO (0.9-2.4); AST(SGOT) 17 U/L (15-37); Alanine Aminotransfer ALT/SGPT 33 U/L (13-56); Albumin, Serum 3.3 g/dL (3.2-5.0); Alkaline Phosphatase 50 U/L (45-117); Anion Gap 5 (5-15); BUN 24 mg/dL (7-18); BUN/Creat Ratio 16.6 RATIO (10-20); Calcium,Total 9.1 mg/dL (8.5-10.1); Chloride 102 mmol/L (98-107); Cholesterol 164 mg/dL (200); Creatinine, Serum 1.45 mg/dL (0.55-1.02); EST Glomerular Filtration Rate 40 mL/min (>60); Est Glom Filt Rate - Afr Amer 49 mL/min (>60); Globulin 4.2 g/dL (2.2-4.2); Glucose 159 mg/dL (74-106); Hemoglobin A1c 8.7 % (3.8-5.6); High Density Lipoprotein 57 mg/dL; Potassium 4.2 mmol/L (3.5-5.1); Protein, Total 7.5 g/dL (6.4-8.2); Sodium Level 139 mmol/L (136-145); T4 Free Direct 1.17 ng/dL (0.76-1.46); Thyroid Stim Hormone (TSH) 1.42 uIU/mL (0.358-3.74); Triglycerides 148 mg/dL; Very Low Density Lipoprotein 30 mg/dL (5-40)
== END ==
DX: E11.65 Type 2 diabetes mellitus with hyperglycemia (principal); E03.9 Hypothyroidism, unspecified
CPT/HCPCS: 36415; 80053; 80061; 83036; 84439; 84443; 85025

== ENCOUNTER → 2020-10-22 09:37 | Outpatient (CLI) | payer OTHER, SELFPAY ==
[2020-10-22 11:42] LABS: Hemoglobin A1c 9.1 % (3.8-5.6)
[2020-10-22 11:50] LABS: ALB/GLOB Ratio 0.7 RATIO (0.9-2.4); AST(SGOT) 28 U/L (15-37); Alanine Aminotransfer ALT/SGPT 45 U/L (13-56); Albumin, Serum 3.3 g/dL (3.2-5.0); Alkaline Phosphatase 54 U/L (45-117); Anion Gap 5 (5-15); BUN 23 mg/dL (7-18); Calcium,Total 9.4 mg/dL (8.5-10.1); Chloride 103 mmol/L (98-107); Cholesterol 205 mg/dL (200); Creatinine, Serum 1.35 mg/dL (0.55-1.02); EST Glomerular Filtration Rate 44 mL/min (>60); Est Glom Filt Rate - Afr Amer 53 mL/min (>60); Globulin 4.8 g/dL (2.2-4.2); Glucose 188 mg/dL (74-106); High Density Lipoprotein 49 mg/dL; Potassium 4.1 mmol/L (3.5-5.1); Protein, Total 8.1 g/dL (6.4-8.2); Sodium Level 134 mmol/L (136-145); T4 Free Direct 1.42 ng/dL (0.76-1.46); Thyroid Stim Hormone (TSH) 4.12 uIU/mL (0.358-3.74); Triglycerides 228 mg/dL; Very Low Density Lipoprotein 46 mg/dL (5-40)
== END ==
PROVIDERS: Referring Provider Internal Medicine Endocrinology, Diabetes & Metabolism; Visit Provider Internal Medicine Endocrinology, Diabetes & Metabolism
DX: E11.22 Type 2 diabetes mellitus with diabetic chronic kidney disease (principal); I12.9 Hypertensive chronic kidney disease with stage 1 through stage 4 chronic kidney disease, or unspecified chronic kidney disease; N18.30 Chronic kidney disease, stage 3 unspecified; E03.9 Hypothyroidism, unspecified; E78.5 Hyperlipidemia, unspecified
CPT/HCPCS: 36415; 80053; 80061; 83036; 84439; 84443

== ENCOUNTER → 2024-01-23 | Outpatient (CLI) | payer SELFPAY, OTHER ==
--- NOTE | 2024-01-23 09:55 | ECHOD_ITS ---
Reason For Study: CHF Procedure This was a 2D Doppler, Color Flow transthoracic echocardiogram. The study was technically difficult. Definity deferred due to nephrectomy. Exam performed in department. Left Ventricle Normal LV size. Left ventricular systolic function is normal. The left ventricular ejection fraction is 55 %. No regional wall motion abnormalities noted. Right Ventricle Normal RV size. Normal systolic function. Atria Normal left atrium. Normal right atrium. Mitral Valve Normal mitral valve. Tricuspid Valve Normal tricuspid valve. Great Vessels Normal aortic root. Pericardium/Pleural No pericardial effusion. MMode/2D Measurements & Calculations Ao root diam: 2.8 cm LAV(MOD-bp): 35.8 ml LA A4 area: 14.1 cm2 LAV(MOD-bp) Indexed: 18.1 ml/m2 LAV(MOD-sp2): 32.5 ml LAV(MOD-sp4): 32.2 ml LA dimension(2D): 2.8 cm RA A4 area: 9.0 cm2 TAPSE: 1.9 cm Time Measurements MV dec time: 0.17 sec Doppler Measurements & Calculations MV E max ravi: 68.9 cm/sec Lat Peak E' Ravi: 7.3 cm/sec Med Peak E' Ravi: 7.0 cm/sec MV A max ravi: 76.4 cm/sec E/E' lat: 9.4 E/E' med: 9.8 MV E/A: 0.90 MV V2 max: 82.2 cm/sec MV dec slope: 403.2 cm/sec2 Ao V2 max: 119.3 cm/sec MV max P.7 mmHg Ao max P.7 mmHg MV V2 mean: 48.4 cm/sec Ao V2 mean: 82.9 cm/sec MV mean P.1 mmHg Ao mean P.1 mmHg MV V2 VTI: 23.1 cm Ao V2 VTI: 25.7 cm AV (velocity ratio): 0.94 LV V1 max: 115.0 cm/sec PA V2 max: 98.7 cm/sec LV V1 max P.3 mmHg PA V2 mean: 67.8 cm/sec LV V1 mean P.6 mmHg LV V1 mean: 75.6 cm/sec LV V1 VTI: 24.2 cm ECHO/Echo Complete Interpretation Summary Normal LV size. Left ventricular systolic function is normal. The left ventricular ejection fraction is 55 %. The study was technically difficult. The study was technically limited. Ordering Physician: Valdez Jerome Referring Physician: VALDEZ JEROME Performed By: Maria De Jesus Neri RCS
== END | disposition home or self-care (01) ==
PROVIDERS: PCP Nurse Practitioner Family; Visit Provider Nurse Practitioner Family
DX: I50.30 Unspecified diastolic (congestive) heart failure (principal); R07.9 Chest pain, unspecified; R06.02 Shortness of breath
CPT/HCPCS: 93306

== ENCOUNTER → 2024-02-01 | Outpatient (CLI) | payer OTHER, SELFPAY ==
[2024-02-01 16:59] LABS: BNP,B-Type NATRIURETIC PEPTIDE 34.7 pg/mL (0-100)
[2024-02-01 17:11] LABS: Anion Gap 4 (5-15); BUN 26 mg/dL (7-18); BUN/Creat Ratio 15.9 RATIO (10-20); Calcium,Total 9.8 mg/dL (8.5-10.1); Chloride 100 mmol/L (98-107); Creatinine, Serum 1.64 mg/dL (0.55-1.02); EST Glomerular Filtration Rate 35 mL/min (>60); Est Glom Filt Rate - Afr Amer 42 mL/min (>60); Glucose 332 mg/dL (74-106); Potassium 4.7 mmol/L (3.5-5.1); Sodium Level 135 mmol/L (136-145); Thyroid Stim Hormone (TSH) 0.63 uIU/mL (0.358-3.74)
== END | disposition home or self-care (01) ==
LOC: LAB 15:30
PROVIDERS: PCP Nurse Practitioner Family; Referring Provider Internal Medicine Cardiovascular Disease; Visit Provider Internal Medicine Cardiovascular Disease
DX: I11.0 Hypertensive heart disease with heart failure (principal); I50.32 Chronic diastolic (congestive) heart failure
CPT/HCPCS: 36415; 80048; 83880; 84443

== ENCOUNTER → 2024-12-19 | Outpatient (CLI) | payer OTHER, SELFPAY ==
[2024-12-19 10:59] LABS: Bacteria 0 SEEN /hpf (None Seen); Mucous, Urine 0 SEEN /hpf (<or=2+); White Blood Cells 0 SEEN /hpf (0-5)
[2024-12-19 12:21] LABS: Color, Urine Yellow (Yellow); Glucose, Dipstick 1000 mg/dl (Normal); Ketone-Dipstick Negative (Negative); Leukocyte Esterase-Dipstick Negative /ul (Negative); Nitrite-Dipstick Negative (Negative); Occult Blood-Urine 25 /ul (Negative); Protein-Dipstick 15 mg/dl (Negative); Urine Bilirubin Dipstick Negative (Negative); Urine Clarity Sl. Cloudy (Clear); Urine Urobilinogen Normal (Normal)
[2024-12-19 12:27] LABS: Squamous Epithelial Cells - UA 0-5 SEEN /hpf (5-10)
[2024-12-19 12:28] LABS: Red Blood Cells-Urine 0-5 SEEN /hpf (0-5)
== END | disposition home or self-care (01) ==
LOC: MTLAB 10:56
PROVIDERS: PCP Nurse Practitioner Family; Referring Provider Nurse Practitioner Family; Visit Provider Nurse Practitioner Family
DX: R30.0 Dysuria (principal)
CPT/HCPCS: 81001; 87086; 87088

== ENCOUNTER → 2025-01-01 | Outpatient (CLI) | payer OTHER, SELFPAY ==
--- NOTE | 2025-01-01 18:42 | US_ITS ---
PROCEDURE: KIDNEY AND BLADDER 01/01/2025 REASON FOR EXAM: CKD TECHNIQUE: Ultrasound imaging of Kidney and bladder. COMPARISON: None available FINDINGS: Report of right nephrectomy. Right renal fossa appears unremarkable. Bladder volume 94 cc. Bladder appears within limits as imaged. Wall thickness 3 mm. Left ureteral jet not seen during imaging. The left kidney measures 11.1 x 5 x 6 cm with a cortical thickness of 2.1 cm and appears within limits for echogenicity without hydronephrosis or perinephric edema seen. 4 x 7 x 3 mm echogenic focus interpolar aspect left kidney unclear if this represents nonobstructing intrarenal stone or possibly fat containing lesion such as an angiomyolipoma. No free fluid seen. US/Kidney and Bladder IMPRESSION: Report of right nephrectomy. 4 x 7 x 3 mm echogenic focus interpolar aspect left kidney unclear if this repr esents nonobstructing intrarenal stone or possibly fat containing lesion such as an angiomyolipoma. Reading Location: [id number]
[2025-01-01 19:00] LABS: Bacteria 0 SEEN /hpf (None Seen); Mucous, Urine 0 SEEN /hpf (<or=2+)
[2025-01-01 19:50] LABS: Color, Urine Yellow (Yellow); Glucose, Dipstick Normal (Normal); Ketone-Dipstick Negative (Negative); Leukocyte Esterase-Dipstick Negative /ul (Negative); Nitrite-Dipstick Negative (Negative); Occult Blood-Urine Negative /ul (Negative); Protein-Dipstick 15 mg/dl (Negative); Specific Gravity, Urine 1.015 (1.002-1.030); Urine Bilirubin Dipstick Negative (Negative); Urine Clarity Sl. Cloudy (Clear); Urine Urobilinogen Normal (Normal)
[2025-01-01 21:38] LABS: Red Blood Cells-Urine 0-5 SEEN /hpf (0-5); Squamous Epithelial Cells - UA 0-5 SEEN /hpf (5-10); White Blood Cells 0-5 SEEN /hpf (0-5)
== END | disposition home or self-care (01) ==
PROVIDERS: Nurse Practitioner Family; PCP Nurse Practitioner Family; Visit Provider Internal Medicine Nephrology
DX: N18.32 Chronic kidney disease, stage 3b (principal); R31.9 Hematuria, unspecified; R30.0 Dysuria
CPT/HCPCS: 76770; 81001; 87086; 87088

== ENCOUNTER → 2025-06-11 | Outpatient (CLI) | payer OTHER, SELFPAY ==
[2025-06-11 13:29] LABS: Hematocrit 40.8 % (37-47); Hemoglobin 13.4 g/dL (12.0-15.0); Mean Corp Hgb Conc 32.8 g/dL (32-36); Mean Corpuscular Volume 85.0 fL (81-99); Mean Platelet Vol. 11.1 fl (6.2-12.0); Platelet Count 249 K/mm3 (150-450); RBC Distribution Width CV 15.3 % (11.6-14.6); RBC Distribution Width SD 47.3 fl (35.1-43.9); Red Blood Count 4.80 M/mm3 (4.2-5.4); White Blood Count 9.2 K/mm3 (4.4-11.0)
[2025-06-11 14:12] LABS: PTHIN 37 pg/mL (11-61)
[2025-06-11 14:14] LABS: Albumin, Serum 4.1 g/dL (3.5-5.0); Anion Gap 10 (5-15); BUN 30 mg/dL (4-19); BUN/Creat Ratio 26.4 RATIO (10-20); Calcium,Total 9.6 mg/dL (7.6-11.0); Carbon Dioxide 27.5 mmol/L (21.0-32.0); Chloride 100 mmol/L (98-108); Creatinine, Urine (random) 164.00 mg/dL (28.00-217.00); Creatinine, Urine (random) 169.00 mg/dL (28.00-217.00); Glucose 236 mg/dL (70-99); Microalbumin,Random Urine 27.4 mg/L (<20 mg/L); Potassium 4.7 mmol/L (3.3-5.1); Protein, Urine (Random) 28.7 mg/dL (0.0-12.0); Protein:Creat Ratio 170 mg/g CRE (0-200)
[2025-06-11 14:21] LABS: AST(SGOT) 16 U/L (<=31); Alanine Aminotransfer ALT/SGPT 15 U/L (<=34); Albumin, Serum 4.1 g/dL (3.5-5.0); Alkaline Phosphatase 55 U/L (35-104); Anion Gap 11 (5-15); BUN 30 mg/dL (4-19); BUN/Creat Ratio 26.4 RATIO (10-20); Calcium,Total 9.6 mg/dL (7.6-11.0); Carbon Dioxide 27.5 mmol/L (21.0-32.0); Chloride 100 mmol/L (98-108); Cholesterol 212 mg/dL (<=200); Globulin 3.3 g/dL (2.2-4.2); Glucose 238 mg/dL (70-99); Low Density Lipoprotein Calc. 116 mg/dL; Potassium 4.8 mmol/L (3.3-5.1); Triglycerides 272 mg/dL; Very Low Density Lipoprotein 54 mg/dL (5-40); cholesterol:hdl ratio screen 4.34
== END | disposition home or self-care (01) ==
PROVIDERS: Internal Medicine Nephrology; PCP Nurse Practitioner Family; Referring Provider Nurse Practitioner Family; Visit Provider Nurse Practitioner Family
DX: N18.32 Chronic kidney disease, stage 3b (principal); E11.65 Type 2 diabetes mellitus with hyperglycemia; Z79.4 Long term (current) use of insulin
CPT/HCPCS: 36415; 80053; 80061; 80069; 82043; 82570; 83970; 84156; 84439; 84443; 85027